=== PATIENT | female | born 1995 | race Caucasian/White ===

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

== ENCOUNTER 2017-05-13 20:22 | Emergency (ER) | payer MEDICAID ==
[~2017-05-13] VITALS: Ht 160 cm; Wt 69.6 kg
[2017-05-13 20:28] VITALS: Ht 160 cm; Wt 69.6 kg
[2017-05-13 22:12] VITALS: BP 113/76
== END 2017-05-13 22:12 | disposition home or self-care (01) ==
LOC: ED 20:22
DX: M94.0 Chondrocostal junction syndrome [Tietze] (principal)
CPT/HCPCS: J1885